=== PATIENT | female | born 1985 | race Caucasian/White ===

== ENCOUNTER → 2017-06-28 | Outpatient (CLI) | payer OTHER ==
[~2017-06-28] MED LIST: Norco 5-325 Ta1 EACH PO; PROZAC20 MG PO; Zithromax250 MG PO; Zofran8 MG PO
[2017-06-28 10:08] LABS: Hematocrit 39.3 % (33.0-51.0); Hemoglobin 13.1 g/dL (11.5-16.0); Mean Corpuscular HGB 27.8 pg (26.0-34.0); Mean Corpuscular HGB Conc 33.3 g/dL (31.5-36.5); Mean Corpuscular Volume 83 fL (80-100); Mean Platelet Volume 9.1 fL (9.1-12.4); Platelet Count 307 K/mm3 (150-400); RDW Coefficient Variation 13.7 % (11.7-14.2); RDW Standard Deviation 41.3 fL (35.1-46.3); Red Blood Cell Count 4.72 M/mm3 (3.80-5.20); White Blood Cell Count 8.28 K/mm3 (4.00-11.30)
[2017-06-28 11:07] LABS: Alanine Aminotransfer (ALT/SGP 34 U/L (12-78); Albumin, Blood 3.1 g/dL (3.4-5.0); Albumin/Globulin Ratio 0.7 (0.8-1.8); Alk Phos 59 U/L (50-136); Anion Gap 9 mmol/L (6-16); Aspartate Aminotrans (AST/SGOT 18 U/L (12-37); Bilirubin, Total 0.2 mg/dL (0.1-1.0); Blood Urea Nitrogen 19 mg/dL (8-24); Bun/Creatinine Ratio 27.4 (12.0-20.0); CO2, Blood 22 mmol/L (21-32); Calcium, Blood 8.9 mg/dL (8.5-10.1); Chloride, Blood 106 mmol/L (98-108); Cholesterol 132 mg/dL (50-200); Creatinine, Blood 0.69 mg/dL (0.40-1.00); Globulin, Blood 4.4 g/dL (2.2-4.0); Glomerular Filtration Rate >60 (60-); Glucose, Blood 110 mg/dL (70-99); HDL Cholesterol 44 mg/dL (>39); LDL/HDL RATIO 1.5; Low Density Lipoprotein Chol 65 mg/dL (0-110); Sodium, Blood 137 mmol/L (136-145); Total Protein, Blood 7.5 g/dL (6.4-8.2); Triglycerides 116 mg/dL (30-140); Very Low Density Lipoprot Chol 23 mg/dL (6-28)
== END ==
LOC: OLS 08:11
PROVIDERS: Physician Assistant Medical
DX: E66.01 Morbid (severe) obesity due to excess calories (principal); Z68.42 Body mass index [BMI] 45.0-49.9, adult
CPT/HCPCS: 36415; 80053; 80061; 84443; 85027

== ENCOUNTER → 2019-01-26 | Outpatient (CLI) | payer OTHER ==
[~2019-01-26] MED LIST changes: +Adipex-P37.5 M1 PO; +CLARITIN10 MG PO; +Excedrin Extra1 EACH PO; +Ferrous Sulfat325 M2 PO; +Hair, Skin & N1 EACH PO; +SERT50 PO; +SUMA25 PO; +VITAMIN C500 M1 PO; +Vitamin D2000 UNIT PO
[2019-01-26 17:23] LABS: BASOPHILS ABSOLUTE AUTO 0.05 K/mm3 (0.00-0.23); BASOPHILS PERCENT AUTO 1 % (0-2); EOSINOPHILS ABSOLUTE AUTO 0.18 K/mm3 (0.00-0.68); EOSINOPHILS PERCENT AUTO 2 % (0-6); Hematocrit 37.4 % (33.0-51.0); Hemoglobin 12.5 g/dL (11.5-16.0); IMMATURE GRAN ABSOLUTE AUTO 0.02 K/mm3 (0.00-0.10); IMMATURE GRAN PERCENT AUTO 0 % (0-1); LYMPHOCYTES ABSOLUTE AUTO 1.84 K/mm3 (0.84-5.20); LYMPHOCYTES PERCENT AUTO 25 % (21-46); MONOCYTES ABSOLUTE AUTO 0.47 K/mm3 (0.16-1.47); MONOCYTES PERCENT AUTO 6 % (4-13); Mean Corpuscular HGB 28.3 pg (26.0-34.0); Mean Corpuscular HGB Conc 33.4 g/dL (31.5-36.5); Mean Corpuscular Volume 85 fL (80-100); Mean Platelet Volume 9.9 fL (9.1-12.4); NEUTROPHILS ABSOLUTE AUTO 4.91 K/mm3 (1.96-9.15); NEUTROPHILS PERCENT AUTO 66 % (41-73); Platelet Count 314 K/mm3 (150-400); RDW Coefficient Variation 13.4 % (11.7-14.2); RDW Standard Deviation 41.6 fL (35.1-46.3); Red Blood Cell Count 4.42 M/mm3 (3.80-5.20); White Blood Cell Count 7.47 K/mm3 (4.00-11.30)
== END | disposition home or self-care (01) ==
LOC: LAB SHORT 17:13 → LAB 17:13
PROVIDERS: Nurse Practitioner Family
DX: N92.1 Excessive and frequent menstruation with irregular cycle (principal)
CPT/HCPCS: 85025

== ENCOUNTER 2019-03-09 09:41 | Day surgery (SDC) | payer OTHER ==
[~2019-03-09] VITALS: Ht 160 cm; Wt 136.9 kg
[~2019-03-09 09:41] MED LIST changes: -CLARITIN10 MG PO; -Excedrin Extra1 EACH PO; -Ferrous Sulfat325 M2 PO; -SERT50 PO; -VITAMIN C500 M1 PO; -Vitamin D2000 UNIT PO
[2019-03-09] MEDS ORDERED: SERT50 PO (09:54)
[2019-03-09] MEDS ORDERED: Vitamin D2000 UNIT PO (09:55)
[2019-03-09] MEDS ORDERED: Ferrous Sulfat325 M2 PO (09:56)
[2019-03-09] MEDS ORDERED: VITAMIN C500 M1 PO (09:56)
[2019-03-09] MEDS ORDERED: CLARITIN10 MG PO (09:57)
[2019-03-09] MEDS ORDERED: Excedrin Extra1 EACH PO (09:57)
--- NOTE | 2019-03-09 10:30 | NUR ---
History, Chart, Medications and Allergies reviewed before start of procedure. Lungs clear T/O to Auscultation. Patient confirms NPO status and agrees with scheduled surgery. Pre-Op teaching done. Pt verbalizes understanding.
--- NOTE | 2019-03-09 12:35 | NUR ---
REPORT TO Wendy MCCLENDON SURGERY RN. SHE TRANSPORTED PT BACK OT [facility] FROM PACU.
--- NOTE | 2019-03-09 13:36 | NUR ---
Patient up to Ambulate independently. Gait steady. Discharge instructions reviewed with patient. Patient verbalizes understanding. Copy given to patient to take home. Discharged via wheelchair to private car for ride home.
== END 2019-03-09 13:35 | disposition home or self-care (01) ==
LOC: ORSCMMR 09:41 → ORD 11:00 → ORSCMMR 13:35
PROVIDERS: Obstetrics & Gynecology
PROC: 0UDB8ZX Extraction of Endometrium, Via Natural or Artificial Opening Endoscopic, Diagnostic (ICD-10-PCS; principal; 2019-03-09 11:00)
DX: N92.1 Excessive and frequent menstruation with irregular cycle (principal); R93.89 Abnormal findings on diagnostic imaging of other specified body structures; N84.0 Polyp of corpus uteri; F32.9 Major depressive disorder, single episode, unspecified; E66.01 Morbid (severe) obesity due to excess calories; Z68.33 Body mass index [BMI] 33.0-33.9, adult; Z79.899 Other long term (current) drug therapy
CPT/HCPCS: 88305; J0330; J0690; J2250; J2704; J3010; J7120

== ENCOUNTER → 2022-01-08 | Outpatient (CLI) | payer OTHER ==
[~2022-01-08] MED LIST changes: +CLARITIN10 MG PO; +Excedrin Extra1 EACH PO; +Ferrous Sulfat325 M2 PO; +SERT50 PO; +VITAMIN C500 M1 PO; +Vitamin D2000 UNIT PO
[2022-01-09 08:08] LABS: HBSAG SCREEN Negative (Negative); HIV AB/P24 AG SCREEN Non Reactive (Non Reactive)
== END | disposition home or self-care (01) ==
LOC: LAB SHORT 14:58
PROVIDERS: Physician Assistant Surgical
DX: Z20.9 Contact with and (suspected) exposure to unspecified communicable disease (principal)
CPT/HCPCS: 84460; 86317; 86803; 87340; 87389